=== PATIENT | female | born 1995 | race Two or more races ===

== ENCOUNTER 2017-07-08 19:48 | Emergency (ER) | payer SELFPAY ==
[2017-07-08 20:03] VITALS: BP 142/66
--- NOTE | 2017-07-08 20:03 | EDPHY ---
H & P Time Seen by Provider: 07/08/17 19:58 HPI/ROS: CHIEF COMPLAINT: Right knee pain HISTORY OF PRESENT ILLNESS: Patient is a 22-year-old female who was intoxicated last night and fell into a kneeling position. She states that it did not bother her much at the time or this morning when she awoke but throughout the day it has become gradually more painful. She is able to extend her knee. She is able to bear weight. She is here wearing a neoprene brace. She denies other injuries. REVIEW OF SYSTEMS: Constitutional: denies: chills, fever, recent illness, recent injury EENTM: denies: blurred vision, double vision, nose congestion Respiratory: denies: cough, shortness of breath Cardiac: denies: chest pain, irregular heart rate, lightheadedness, palpitations Gastrointestinal/Abdominal: denies: abdominal pain, diarrhea, nausea, vomiting, blood streaked stools Genitourinary: denies: dysuria, frequency, hematuria, pain Musculoskeletal: See HPI Skin: denies: lesions, rash, jaundice, bruising Neurological: denies: headache, numbness, paresthesia, tingling, dizziness, weakness Hematologic/Lymphatic: denies: blood clots, easy bleeding, easy bruising Immunologic/allergic: denies: HIV/AIDS, transplant EXAM: GENERAL: Well-appearing, well-nourished and in no acute distress. HEAD: Atraumatic, normocephalic. EYES: Pupils equal round and reactive to light, extraocular movements intact, sclera anicteric, conjunctiva are normal. ENT: TMs normal, nares patent, oropharynx clear without exudates. Moist mucous membranes. NECK: Normal range of motion, supple without lymphadenopathy or JVD. LUNGS: Breath sounds clear to auscultation bilaterally and equal. No wheezes rales or rhonchi. HEART: Regular rate and rhythm without murmurs, rubs or gallops. ABDOMEN: Soft, nontender, normoactive bowel sounds. No guarding, no rebound. No masses appreciated. BACK: No CVA tenderness, no spinal tenderness, step-offs or deformities EXTREMITIES: Pain and tenderness to patella and bilateral margins. No significant swelling or deformity. No laxity felt. Able to straight leg. Normal pulses and sensation distally. NEUROLOGICAL: Cranial nerves II through XII grossly intact. Normal speech, normal gait. 5/5 strength, normal movement in all extremities, normal sensation PSYCH: Normal mood, normal affect. SKIN: Warm, dry, normal turgor, no visible rashes or lesions. Source: Patient Exam Limitations: No limitations - Medical/Surgical History Hx Asthma: No Hx Chronic Respiratory Disease: No Hx Diabetes: No Hx Cardiac Disease: No Hx Renal Disease: No Hx Cirrhosis: No Hx Alcoholism: No Hx HIV/AIDS: No Hx Splenectomy or Spleen Trauma: No - Family History Significant Family History: No pertinent family hx - Social History Smoking Status: Never smoked Alcohol Use: None Constitutional: Initial Vital Signs Temperature (C) 37 C 07/08/17 20:01 Heart Rate 55 L 07/08/17 20:01 Respiratory Rate 16 07/08/17 20:01 Blood Pressure 142/66 H 07/08/17 20:01 O2 Sat (%) 97 07/08/17 20:01 O2 Delivery Mode Room Air Allergies/Adverse Reactions: No Known Allergies Allergy (Unverified 07/08/17 20:00) Home Medications: Medication Instructions Recorded NK [No Known Home Meds] 07/08/17 Medical Decision Making - Diagnostics Imaging Results: Imaging Impressions Knee X-Ray 07/08/17 19:59 Impression: Negative for fracture. If symptoms persist, MRI could be considered for further evaluation. Imaging: I viewed and interpreted images myself (Negative for fractures) Procedures: Procedure: Splint placement. A straight leg knee brace splint was applied. After application of the splint I returned and re-examined the patient. The splint was adequately immobilizing the joint and distal to the splint the patient's circulation and sensation was intact. ED Course/Re-evaluation: My 8:20 p.m. We discussed the x-ray results. The patient is reassured. We placed her in a straight leg brace for comfort and instructed her to use it as tolerated. She will follow up with her regular doctor. We discussed indications for returning. Differential Diagnosis: Partial list of the Differential diagnosis considered include but were not limited to; knee pain, contusion, fracture, patella injury and although unlikely based on the history and physical exam, I also considered knee dislocation, vascular injury, nerve injury, septic joint. I discussed these differential diagnoses and the plan with the patient as well as the usual and expected course. The patient understands that the diagnosis is provisional and that in medicine we are not always correct and that further workup is often warranted. Usual and customary warnings were given. All of the patient's questions were answered. The patient was instructed to return to the emergency department should the symptoms at all worsen or return, otherwise to followup with the physician as we discussed. Departure - Departure Disposition: Home, Routine, Self-Care Clinical Impression: Right knee pain Qualifiers: Chronicity: acute Qualified Code(s): M25.561 - Pain in right knee Condition: Fair Instructions: Knee Pain (ED) Referrals: NONE *PRIMARY CARE P,. [Primary Care Provider] - As per Instructions Augustine Thrasher MD [Medical Doctor] - 5-7 days, if not improved
== END 2017-07-08 20:48 | disposition home or self-care (01) ==
LOC: CED 19:48
DX: S89.91XA Unspecified injury of right lower leg, initial encounter (principal); W18.39XA Other fall on same level, initial encounter
CPT/HCPCS: 73564-PO; L1830